=== PATIENT | female | born 1960 | race Two or more races ===

== ENCOUNTER 2025-08-28 11:02 | Emergency (ER) | payer OTHER, SELFPAY ==
[2025-08-28] VITALS (7 sets, daily range): BP systolic 116–153; BP diastolic 60–83; PULSE 60–66; BMI 45.6
--- NOTE | 2025-08-28 12:27 | ED.GENMED ---
History of Present Illness
<Joshua Quinn PA-C - Last Filed: 08/29/25 09:22>
General
Chief Complaint: Fainting/Passed Out
Time Seen by Provider: 08/28/25 12:03
History of Present Illness
History of Present Illness:
65-year-old female with history of hypertension presents to the emergency department for evaluation of a syncopal event. For the past several days to weeks she has had dizziness on occasion when going to stand up, today she had a similar episode
that was much more severe and she syncopized. She was caught and lowered to the ground by family. She reports left-sided neck discomfort currently that has been ongoing for quite some time. Denies any current headache, chest pain, or shortness of
breath. She states during these episodes she does get blurry vision that eventually resolves. No recent fevers or chills. She is on metoprolol and losartan for blood pressure. Reportedly during the fainting spell today her daughter checked her
blood pressure and noted a severe elevation at 180 systolic.
Review of Systems
<Joshua Quinn PA-C - Last Filed: 08/29/25 09:22>
Review of Systems
Allergies reviewed?: Yes
All Other Systems: ROS reviewed and negative except as documented in HPI and ROS
Phy Exam
<Joshua Quinn PA-C - Last Filed: 08/29/25 09:22>
Physical Exam
Physical Exam:
GEN: Well appearing, NAD, WDWN
HEENT: Oral mucosa moist, no scleral icterus, no nasal congestion
Cardiac: Regular rate and rhythm, no murmur
Lung: No respiratory distress, no tachypnea, lungs clear to auscultation bilaterally
MSK: No gross deformity or injuries
Skin: Good color, no pallor or jaundice, no rashes
Neuro: AO x3; CN II-XII grossly intact. BUE strength 5/5 in all morse, sensation intact and symmetric. BLE strength 5/5 in all morse, sensation intact and symmetric
Psych: Calm, cooperative
Course
<Joshua Quinn PA-C - Last Filed: 08/29/25 09:22>
Orders/Labs/Results
Orders:
Orders
08/28/25 12:09
Electrocardiogram (*1) Urgent
Reason for Study: Syncope
EKG- Treatment ONCE
08/28/25 12:27
CT Head W/o Iv Contrast Urgent
Comment:
Reason For Exam: syncope
Orthostatic VS- Treatment ONCE
US Cerebrovascular Urgent
Comment:
Reason For Exam: syncope/vision changes
08/28/25 13:17
Basic Metabolic Panel Urgent
Complete Blood Count/With Diff Urgent
08/28/25 14:26
LFT [[id number]] Urgent
Potassium Urgent
08/28/25 14:32
0.9% Sodium Chloride 1000 ml [Nss] 1,000 ml IV BOLUS
Abnormal Lab Results
08/28/25
13:17
MCHC 32.2 L g/dL
(33.0-37.0)
Creatinine 0.5 L mg/dL
(0.6-1.0)
08/28/25 13:17
08/28/25 14:26
Vital Signs
Initial and Last Documented VS:
Initial Vital Signs
Temp Pulse Resp Pulse Ox
98.0 F 82 18 98
08/28/25 11:07 08/28/25 11:07 08/28/25 11:07 08/28/25 11:07
Last Documented Vital Signs
Temp Pulse Resp BP Pulse Ox
98.5 F 62 16 116/60 94
08/28/25 14:16 08/28/25 17:15 08/28/25 17:15 08/28/25 16:00 08/28/25 17:15
<Jude Doan PA-C - Last Filed: 08/28/25 17:35>
Orders/Labs/Results
Orders:
Orders
08/28/25 12:09
Electrocardiogram (*1) Urgent
Reason for Study: Syncope
EKG- Treatment ONCE
08/28/25 12:27
CT Head W/o Iv Contrast Urgent
Comment:
Reason For Exam: syncope
Orthostatic VS- Treatment ONCE
US Cerebrovascular Urgent
Comment:
Reason For Exam: syncope/vision changes
08/28/25 13:17
Basic Metabolic Panel Urgent
Complete Blood Count/With Diff Urgent
08/28/25 14:26
LFT [[id number]] Urgent
Potassium Urgent
08/28/25 14:32
0.9% Sodium Chloride 1000 ml [Nss] 1,000 ml IV BOLUS
Abnormal Lab Results
08/28/25
13:17
MCHC 32.2 L g/dL
(33.0-37.0)
Creatinine 0.5 L mg/dL
(0.6-1.0)
08/28/25 13:17
08/28/25 14:26
Vital Signs
Initial and Last Documented VS:
Initial Vital Signs
Temp Pulse Resp Pulse Ox
98.0 F 82 18 98
08/28/25 11:07 08/28/25 11:07 08/28/25 11:07 08/28/25 11:07
Last Documented Vital Signs
Temp Pulse Resp BP Pulse Ox
98.5 F 62 16 116/60 94
08/28/25 14:16 08/28/25 17:15 08/28/25 17:15 08/28/25 16:00 08/28/25 17:15
<Joshua Quinn PA-C - Last Filed: 08/29/25 09:22>
Comment
Comment:
EKG independently interpreted by me shows a sinus bradycardia at a rate of [address] changes concerning for ischemia, QTc of 416
*Pulse Oximetry
SaO2: 98
Oxygen Mode of Delivery: Room air
<Jude Doan PA-C - Last Filed: 08/28/25 17:35>
*Pulse Oximetry
Patient hypoxic: no
*Critical Care Note
Total Time (30-74mins, 75-104mins- exclusive of procedures): Not Applicable
<Jude Doan PA-C - Last Filed: 08/28/25 17:35>
Update Note
Update Note:
Case signed out pending CT of the head. CT of the head was ordered and reviewed and is negative for acute finding. Patient feeling better upon reassessment. Labs reviewed without significant abnormality. Suspect volume depletion orthostatic
hypotension as source of syncope today.
ED Attending Note
<Joshua Quinn PA-C - Last Filed: 08/29/25 09:22>
-
Portions of this chart may have been created with voice recognition software.� Occasional wrong word or��sound alike� substitutions may have occurred due to the inherent limitations of voice recognition software.
Discharge Plan
Departure
Patient Disposition: Home (Routine Discharge)
Date of Disposition: 08/28/25
Time of Disposition: 17:34
Patient with high blood pressure during this ER visit?: No
Discharge Problem:
Syncope
Instructions: Syncope (Fainting) (DC)
Activity Restrictions/Additional Instructions:
Stay hydrated. Please return here for worsening symptoms otherwise follow-up with
Interventions
Interventions:
*Risk Screen - Suicide Last Done: 08/28/25 14:14
*General Assessment Last Done: 08/28/25 14:14
*Neglect/Abuse Screening Last Done: 08/28/25 14:14
*ED COVID-19 Vaccine History Last Done: 08/28/25 14:14
*ED Influenza Vaccine History Last Done: 08/28/25 14:14
*Nursing Disposition Last Done: 08/28/25 18:11
ED- Cardiac Assessment Last Done: 08/28/25 16:18
ED- Neurological Assessment Last Done: 08/28/25 16:18
Discharge Date and Time
Discharge Date/Time: 08/28/25 18:12
Print Language: ICELANDIC
[2025-08-28 13:28] LABS: Hematocrit 40.1 % (37.0-47.0); Hemoglobin 12.9 g/dL (12.0-16.0); Mean Corp Hgb Conc. 32.2 g/dL (33.0-37.0); Mean Corpuscular Volume 92.8 fL (81.0-99.0); Nucleated Red Blood Cells % 0 %; Platelet Count 238 10^3/uL (130-400); Red Cell Dist. Width 13.5 % (11.5-14.5)
[2025-08-28 13:41] LABS: Blood Urea Nitrogen 17 mg/dl (7-17); Calcium 9.6 mg/dl (8.4-10.2); Carbon Dioxide 27 mmol/L (22-30); Chloride 106 mmol/L (98-107); Glucose 94 mg/dl (70-99); Sodium 137 mmol/L (135-145); eGFR > 60.00
[2025-08-28] MEDS: NSS 1000 IV (14:47)
[2025-08-28 14:54] LABS: ALT (SGPT) 18 U/L (0-35); AST (SGOT) 20 U/L (14-36); Albumin 4.1 g/dl (3.5-5.0); Alkaline Phosphatase 64 U/L (38-126); Potassium 4.1 mmol/L (3.5-5.1); Total Protein 7.0 g/dl (6.3-8.2)
== END 2025-08-28 18:12 | disposition home or self-care (01) ==
LOC: EMR 11:02
PROVIDERS: Physician Assistant; EMERGENCY PHYSICIAN Student in an Organized Health Care Education/Training Program; FAMILY PHYSICIAN General Practice
DX: R55 Syncope and collapse (principal); R00.1 Bradycardia, unspecified; I10 Essential (primary) hypertension
CPT/HCPCS: 99284; 96360; 70450; 80048; 80076; 84132; 85025; 93005; 93880